=== PATIENT | female | born 1970 | race Caucasian/White ===

== ENCOUNTER 2022-01-03 10:04 | Emergency (ER) | payer BC, SELFPAY ==
--- NOTE | 2022-01-03 10:15 | ED.GENADULT ---
HPI - General Adult General Chief complaint: Upper Respiratory Infection Stated complaint: sorethroat History of Present Illness HPI narrative: Patient is a 51-year-old female who presents to the [facility] via [facility]OV for an evaluation of upper respiratory symptoms that started yesterday. Additionally, she reports a scratchy throat, left tonsillar swelling and postnasal drip. Salt water gargles provide some relief. Symptoms worsen at night. She reports taking a home COVID test which was negative. Related Data Home Medications Medication Instructions Recorded Confirmed No Home Medications 01/03/22 01/03/22 Allergies Allergy/AdvReac Type Severity Reaction Status Date / Time No Known Allergies Allergy Verified 01/03/22 10:30 Review of Systems Review of Systems: Denies history of COPD, bronchitis, asthma, and pneumonia. Denies current/past tobacco use. Pertinent negatives: fever, sweats, chills, change in appetite, fatigue, skin color changes, headache, nasal congestion, dizziness, lymphadenopathy, sinus problems, drooling, difficulty swallowing, ear pain/drainage, chest pain, heart murmurs, heart palpitations, shortness of breath, wheezing, cyanosis, hemoptysis, hoarseness, orthopnea, pleuritic pain, nausea, vomiting, diarrhea, and myalgias. PMFSH Comments I have reviewed and agree with the patient's past medical, surgical, social, and family hx as documented by the RN. There is no relevant family history pertinent to the presenting complaint. Exam Narrative: GENERAL: Well-appearing, well-nourished, and in no acute distress. HEAD: Normocephalic, atraumatic. No sinus tenderness or facial swelling appreciated. EYES: PERRLA and EOMI. No evidence of erythema, swelling, or drainage. ENT: Bilateral external ears and ear canals normal. Bilateral TMs are normal.No TM perforation. Nares clear, no rhinorrhea or epistaxis. Bilateral turbinates without erythema/ swelling. Mucous membranes moist and pink. Uvula is midline without erythema and swelling. Moderate erythema noted to posterior pharynx. No evidence of tonsillar swelling, exudate, pooling of secretions, tonsillar abscess, tenting, pooling of secretions. Breath odor and voice normal. NECK: Supple. No Lymphadenopathy or nuchal rigidity appreciated. CHEST: Bilateral lung staley are clear to auscultation. No respiratory distress. No evidence of cough or pleuritic cp upon examination. HEART: Regular rate and rhythm. No murmur, gallop, or rub heard. EXTREMITIES: Normal range of motion. No edema. SKIN: Warm, dry, no rash. NEURO: No focal deficits. Alert and oriented x3. Course Course Level of Care: Express Care Visit Medical Decision Making Differential Diagnosis Differential Diagnosis: Allergic rhinitis, ABRS, acute viral sinusitis, strep pharyngitis, nasopharyngitis, bronchitis, pneumonia, AOM, otitis externa, viral URI, influenza, covid-19 Vital Signs Vital Signs: Reviewed Lab Data Lab results narrative: Rapid strep negative Critical Care Time Critical Care Time Critical Care Time: No Discharge Plan Discharge Clinical Impression: Upper respiratory infection Patient Disposition: Home, Self-Care Condition: Stable Additional Instructions: --See discharge instructions for detailed information. --You tested negative for strep today. --If you received prescription medication today be sure to take all prescription medication only as prescribed. --You may take [id number]-ror-[id number] Tylenol/ibuprofen as needed for pain, swelling, or fever control. Take only as directed per packaging label. --If you have been prescribed prednisone, DO NOT take yewt-cov-dyfmirx anti-inflammatories such as Ibuprofen, Advil, Aleve etc. while taking this mediation. --Be sure to follow up with your primary care provider as recommended. Follow-up/Referrals: Apoorva Degroot PA-C [Primary Care Provider] - Time of Disposition: 10:44
[2022-01-03 10:19] VITALS: BP 139/90; PULSE 79; RESP 18; TEMP 36.8; O2SAT 100
== END 2022-01-03 10:45 | disposition home or self-care (01) ==
PROVIDERS: Emergency Provider Nurse Practitioner Family; PCP Physician Assistant Medical
DX: J06.9 Acute upper respiratory infection, unspecified (principal)
CPT/HCPCS: 87081; 87880; 99203; G0463

== ENCOUNTER 2025-04-20 16:05 | Outpatient (CLI) | payer OTHER, SELFPAY ==
--- NOTE | ~2025-04-20 | MR_ITS ---
EXAMINATION: MR knee RT wo con DATE: 04/20/2025 16:44 INDICATION: 54-year-old female with right knee pain. No mention of trauma. TECHNIQUE: Magnetic resonance imaging (MRI) of the right knee knee was performed without intravenous contrast. Sequences included axial PD-weighted FS FSE, coronal PD-weighted FSE and PD-weighted FS FSE, sagittal PD-weighted FSE, and sagittal T2-weighted FS FSE. COMPARISON: Radiograph dated 10/20/2023. FINDINGS: No acute bony lesions at the right knee. Lateral meniscus and lateral articular cartilage are normal. The anterior and posterior cruciate ligaments are intact. Severe, grade 3 to grade 4 degenerative changes of medial articular cartilage with minimal subchondral bone marrow edema and near complete loss of cartilage lining over the medial aspect of the medial compartment. Significant irregular chronic complex tear of the posterior horn of the medial meniscus extending to the mid medial meniscus with a large portion of mid medial meniscus is absent. Cystic degeneration of the periphery of the mid medial meniscus with severe medial extrusion of mid medial meniscus. Collateral ligaments are intact. Quadriceps and patellar tendon are intact. Patellofemoral articular cartilage are normal. Small effusion in the knee joint. 2 x 1 cm Joe's cyst in the popliteal fossa. IMPRESSION: 1. No acute bony lesions at the right knee. 2.Significant irregular chronic complex tear of the posterior horn of the medial meniscus extending to the mid medial meniscus with a large portion of mid medial meniscus is absent. Cystic degeneration of the periphery of the mid medial meniscus with severe medial extrusion of mid medial meniscus. 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 4. Small effusion in the knee joint. Small Joe's cyst in the popliteal fossa. Reviewed, dictated and finalized at location [facility] IMPRESSION: 1. No acute bony lesions at the right knee. 2.Significant irregular chronic complex tear of the posterior horn of the media l meniscus extending to the mid medial meniscus with a large portion of mid med ial meniscus is absent. Cystic degeneration of the periphery of the mid medial meniscus with severe medial extrusion of mid medial meniscus. 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 4. Small effusion in the knee joint. Small Joe's cyst in the popliteal fossa.
--- OUTSIDE RECORDS SUMMARY | 2025-04-20 16:11 | XMS_ITS | Clinical Summary ---
Author Organization [facility] [address] [facility] Address [address] [place] [address] Care Team Providers Care Advertising Strategist Name Role Phone Unavailable Primary Care Provider Unavailabl e Social History Tobacco Use Types Packs/Day Years Used Date Smoking Tobacco: Never Assessed Comments Unknown Sex and Gender Information Value Date Recorded Sex Assigned at Not on file Legal Sex Female 3:35 PM CDT Gender Identity Not on file Sexual Orientation Not on file Plan of Treatment Upcoming Encounters Date Type Department Care Team ([facility] st Contact Info) Description 07/09/2025 10:30 AM CDT Office Visit [facility] Oncology and Hematology - [place] [address] [facility] [address] [place] [address] Jesus Manuel Ga MD [address] [facility] [address] [place] [address] Health Maintenance Due Date Last Done Comments DTAP/TDAP/TD VACCINES (1 - Tdap) 1988 HEPATITIS B VACCINES (1 of 3 - 19+ 3-dose series) 06/04 HPV/Cotest (21-29) 1990 CERVICAL CANCER SCREENING 1999 HPV/Cotest (30-65) 1999 PAP SMEAR 1999 BREAST CANCER SCREENING 2009 COLORECTAL SCREENING 2014 Colorectal Cancer Screening 2014 FIT-DNA Q 3 years 2014 FIT/FOBT Q 1 year 2014 Flex Sig/CT Colonography Q 5 years 2014 ZOSTER VACCINE (1 of 2) 2019 INFLUENZA VACCINE (#1) 2024
--- OUTSIDE RECORDS SUMMARY | 2025-04-20 16:11 | XMS_ITS | Clinical Summary ---
Author Organization [facility] Address [address] [place] [address] Care Team Providers Care Biochemical Development Engineer Name Role Phone Apoorva Degroot PA-C Primary Care Provider [phone] Allergies No known active allergies Medications Ascorbic Acid (SIRENA-C OR) Take 1,000 mg by mouth daily. Active Zinc 50 MG Tab Take by mouth Active Cyanocobalamin 100 MCG Tab Take 2,000 mcg by mouth daily. Active Cholecalciferol 10 MCG (400 UNIT) Cap 2,000 Units. Active methylPREDNISol one, DEBBI, (MEDROL DOSEPAK) 4 MG tabletIndicatio ns:Right ankle swelling 6 TABLETS ON DAY ONE, 5 TABLETS DAY TWO, 4 TABLETS DAY THREE, 3 TABLETS DAY FOUR, 2 TABLETS DAY FIVE, AND 1 TABLET DAY SIX 1 each 10/27/2022 Active Active Problems No known active problems Immunizations Immunization Administration Dates Next Due Influenza Adult (Generic) 03/19/2018,02/27/2016 MODERNA COVID-19 (12+) MRNA, LNP-S, PF, 100 MCG/ 0.5 ML DOSE 08/23/2020,07/26/2020 MODERNA COVID-19 (HOSPICE OFFICE COORDINATOR SAMSON LAINEY), MRNA, LNP-S, PF, 50 MCG/ 0.25 ML DOSE 04/28/2021 Family History Medical History Relation Comments Cancer Mother Diabetes Mother Cancer Paternal Uncle Cancer Sister Relation Status Comments Mother Paternal Uncle Sister Social History Tobacco Use Types Packs/Day Years Used Date Smoking Tobacco: Never Passive Smoke Exposure: Never Smokeless Tobacco: Never Tobacco Cessation:Counseling Given: Not Answered Alcohol Use Standard Drinks/Week Comments Not Currently 0 (1 standard drink = 0.6 oz pur e alcohol) PHQ-2 Answer Date Recorded Patient Health Questionnaire-2 Score 0 10/27/2022 Comments No Sex and Gender Information Value Date Recorded Sex Assigned at Not on file Legal Sex Female 7:29 PM CDT Gender Identity Not on file Sexual Orientation Not on file Last Filed Vital Signs Vital Sign Reading Time Taken Comments Blood Pressure 164/96 10/27/2022 10:01 AM CDT Pulse 76 10/27/2022 9:57 AM CDT Temperature 36.9 C (98.4 F) 10/27/2022 9:57 AM CDT Respiratory Rate 20 10/27/2022 9:57 AM CDT Oxygen Saturation 99% 10/27/2022 9:57 AM CDT Inhaled Oxygen Concentration - - Weight 113.4 kg (250 lb) 10/27/2022 9:57 AM CDT Height 165.1 cm (5' 5) 10/27/2022 9:57 AM CDT Body Mass Index 41.6 10/27/2022 9:57 AM CDT Plan of Treatment Health Maintenance Due Date Last Done Comments Cervical Cancer Screening Pa p Smear (Age 30 to 64) Every 3 Years 1969 Colorectal Cancer Screening Colonoscopy (10 Years) 1969 Annual Physical 1972 Hepatitis C 1987 DTaP, Tdap and Td Vaccines ( 1 - Tdap) 1988 Hepatitis B Vaccines (1 of 3 - 19+ 3-dose series) 1988 Cervical Cancer Screening Pa p with HPV Testing (Age 30 to 64) Every 5 Years 1999 Cervical Cancer Screening wi th HPV 1999 Mammogram Screening 2009 Pneumococcal Vaccine: 50+ Years (1 of 1 - PCV) 2019 Zoster Vaccines (1 of 2) 2019 COVID-19 Vaccine (4 - 2024-2 6 season) 2025 04/28/2021, 08/23/2020, 07/26/2020 Influenza Adult (#1) 2025 03/19/2018, 02/27/2016 Hepatitis A Vaccines Aged Out No long er eligible based on patient's age to complete this topic Meningococcal B Vaccine Aged Out No l onger eligible based on patient's age to complete this topic Meningococcal Vaccine Aged Out No melissa benson eligible based on patient's age to complete this topic RSV Immunizations Under 20 Months Aged Out No longer eligible b ased on patient's age to complete this topic Insurance Care Teams Biochemical Development Engineer Relationship Specialty Start Date End Date Apoorva Degroot PA-C [address] [place], [place] [id number] [place] [address] PCP - General PHYSICIAN DIRECTOR [employer] 10/27/22
--- OUTSIDE RECORDS SUMMARY | 2025-04-20 16:11 | XMS_ITS | Clinical Summary ---
Author Organization [facility] at [facility] Office Center Address [address] [place] [address] Care Team Providers Care Posting Machine Operator Name Role Phone Apoorva Degroot Primary Care Provider [phone] Maulik Tate MD Unavailable [phone] Berta Sinclair NP Unavailable [phone] Allergies No known active allergies Medications cyanocobalamin (Vitamin B-12) 100 mcg tablet Take 20 tablets (2,000 mcg total) by mouth daily Active cholecalciferol (VITAMIN D-3) 400 unit capsule 5 tablet/capsu le (2,000 Units total) Active ascorbic acid (VITAMIN C) 1,000 mg tablet Take 1 tablet (1,000 mg total) by mouth daily Active zinc 50 mg tablet Take by mouth Active estradioL (ESTRACE) 0.01 % (0.1 mg/gram) vaginal cream Apply nightly to vagina for 1 week, then Wednesday// Wednesday 42.5 g 1 08/11/2023 Active Active Problems Problem Noted Date Diagnosed Date History of colonic polyps 02/19/2025 Rectal adenoma 07/28/2022 Encounter for screening colonoscopy 12/23/2021 Overview (12/23/2021): Added automatically from request for surgery [id number] Epistaxis 12/09/2021 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 Deviated nasal septum 12/09/2021 Encounters Date Type Department Care Team Description 03/16/2025 Results Follow-Up [facility] Surgeon [address] [place] [address] Maulik Tate MD Surgical pathology 03/14/2025 3:13 PM YOUTH ADVOCATE Anesthesia Event [facility] Endoscopy [address] [place] [address] Americo Lebron MD Talbert, Jessica Jean, TEST PULLER 03/14/2025 2:30 PM YOUTH ADVOCATE - 03/14/2025 3:15 PM YOUTH ADVOCATE Surgery [facility] Endoscopy [address] [place] [address] Maulik Tate MD COLON REMOVAL SNARE 03/14/2025 1:13 PM YOUTH ADVOCATE - 03/14/2025 5:08 PM YOUTH ADVOCATE Hospital Encounter [facility] Endoscopy [address] [place] [address] Maulik Tate MD History of colonic polyps Discharge Disposition: Discharge to home or self care 03/07[facility] Floor 5 [place] [phone] Chandni Perez, JOANA Surgery Confirmation (03/14/25 COLONOSCOPY ) 03/07/2025 Telephone [facility] Medicine Surgery [address] [facility] 2nd Floor [address] [place] [address] Cira Pineda, SULAIMAN Colonoscopy 02/16/2025 [facility] [address] [facility] Floor 5 [place] [phone] Cynthia Black B.A. Colonoscopy checklist 02/16/2025 [facility] [address] [facility] Floor 5 [place] [phone] Cynthia Black BJanine Colonoscopy 02/12/2025 Telephone [facility] Medicine Surgery [address] [place] [address] Floor 5 [place] [phone] Cynthia Black BImaniAImani Colonoscopy 01/29/2025 Results Follow-Up [facility] Obstetrical Gynecology [address] [facility] [address] [place] [address] Amado Moran MD Screening Mammogram Bilateral W Angus 01/27/2025 8:34 AM CDT - 01/27/2025 11:59 PM CDT Hospital Encounter [facility] Breast Imaging [address] [place] [phone] Screening mammogram, encounter for Discharge Disposition: Discharge to home or self care from Last 3 Months Surgical History Surgery Date Site/Laterality Comments CHOLECYSTECTOMY BREAST BIOPSY 1990s Right Medical History Medical History Date Comments Family history of breast cancer in first degree relative Fibrosis, breast Nosebleed Family History Medical History Relation Name Comments Colon polyps Father Colon cancer Father's Brother Breast cancer Mother Diabetes Mother BRCA1 Negative Sister BRCA2 Negative Sister Breast cancer Sister Relation Name Status Comments Father Father's Brother Mother Sister Social History Tobacco Use Types Packs/Day Years Used Date Smoking Tobacco: Never Smokeless Tobacco: Never Tobacco Cessation:Counseling Given: Not Answered Alcohol Use Standard Drinks/Week Comments Yes 0 (1 standard drink = 0.6 oz pur e alcohol) AUDIT-C Answer Date Recorded Q1: How often do you have a drink containing alc ohol? Monthly or less 03/14/2025 Q2: How many drinks containi ng alcohol do you have on a typical day when you are drinking? 1 or 2 03/14/2025 Q3: How often do you have si x or more drinks on one occasion? Never 03/14/2025 Personal Safety Answer Date Recorded Have you ever been in or are you currently in a harmful physical or emotional relationship or is someone making you feel afraid or unsafe? Denies 03/14/2025 Comments No Sex and Gender Information Value Date Recorded Sex Assigned at Not on file Legal Sex Female 1:45 AM YOUTH ADVOCATE Gender Identity Not on file Sexual Orientation Not on file Obstetrics History Para Term AB IAB SAB Ectopic Multiple Livin g Live Births 2 2 2 Date Outcome GA Total Labor Labor/2nd/3rd Weight Sex Type Anes PTL Shannon A1 A5 Name Clin Term Term Comments First delivery: 27 yo Menarche: 12 Last Filed Vital Signs Vital Sign Reading Time Taken Comments Blood Pressure 148/87 03/14/2025 4:40 PM YOUTH ADVOCATE Pulse 68 03/14/2025 4:40 PM YOUTH ADVOCATE Temperature 36.4 C (97.5 F) 03/14/2025 4:15 PM YOUTH ADVOCATE Respiratory Rate 16 03/14/2025 4:40 PM YOUTH ADVOCATE Oxygen Saturation 99% 03/14/2025 4:40 PM YOUTH ADVOCATE Inhaled Oxygen Concentration - - Weight 115.2 kg (254 lb) 03/14/2025 1:24 PM YOUTH ADVOCATE Height 172.7 cm (5' 8) 03/14/2025 1:24 PM YOUTH ADVOCATE Body Mass Index 38.62 03/14/2025 1:24 PM YOUTH ADVOCATE Plan of Treatment Health Maintenance Due Date Last Done Comments Depression Screening 1970 Hepatitis C Screening 1970 DTaP/Tdap/Td Vaccine (1 - Tdap) 1980 Hepatitis B Screening 1987 Zoster Vaccine (1 of 2) 2019 Cervical Cancer Screening 12/26/20242023, 12/27/2023, 08/02/2023, Additional history exists Covid-19 Vaccine ( season) 2025 04/28/2021, 08/23/2020, 07/26/2020 Influenza Vaccine (#1) 2025 03/19/2018, 2015 Regular Well Visit/Exam 18-64 01/08/2026 01/08/2025, 06/21/2023, 03/13/2022, Additional history exists Breast Cancer Screening-Mammogram 01/27/2026 01/27/2025, 11/22/2023, 10/28/2022, Additional history exists Colon Cancer Screening-Colonoscopy 03/14/2035 03/14/2025, 12/31/2021 Colon Cancer Screening-CT Colonography Discontinued 03/14/2025, 12/31/2021 Colon Cancer Screening-DNA Stool Discontinued 03/14/2025, 12/31/2021 Colon Cancer Screening-FIT Discontinued 03/14/2025, Colon Cancer Screening-Sigmoidoscopy Discontinued 03/14/2025, 12/31/2021 Pneumococcal vaccine <65 Aged Out No longer eligible based on patient's age to complete this topic Procedures Procedure Name Priority Date/Time Associated Diagnosis Comments SURGICAL PATHOLOGY Routine 03/14/2025 3: 42 PM YOUTH ADVOCATE History of colonic polyps ENDO ADD ON COLON BIOPSY 03/14/2025 3:13 PM YOUTH ADVOCATE History of colonic polyps COLON REMOVAL SNARE 03/14/2025 3 :13 PM YOUTH ADVOCATE History of colonic polyps COLONOSCOPY 03/14/2025 2:57 PM YOUTH ADVOCATE SCREENING MAMMOGRAM BILATERAL W ANGUS Schedule Routine, Read Routine (OP Routine) 01/27/2025 9:01 AM CDT Screening mammogram, encounter for HIGH RISK HPV DNA DETECTION WITH GENOTYPING Routine 12/27/2023 6:22 PM CDT Screening for cervical cancer Unsatisfactory cytologic smear of cervix from Last 3 Months or Most Recently Relevant to Health Maintenance Results * Surgical pathology (03/14/2025 3:42 PM YOUTH ADVOCATE) Tissue (Polyp(s), colon/colorectal, esophageal, gastric) 03/14/2025 3:42 PM YOUTH ADVOCATE Comment:2 forceps Tissue specimen (specimen) (Polyp(s), colon/colorectal, esophageal, gastric) 03/14/2025 3:48 PM YOUTH ADVOCATE Comment:1 forceps Tissue specimen (specimen) (Polyp(s), colon/colorectal, esophageal, gastric) 03/14/2025 3:55 PM YOUTH ADVOCATE Comment:1 hot snare Narrative PATHOLOGY [facility] - 03/16/2025 12:49 PM YOUTH ADVOCATE EPIC results best viewed via link to PDF [facility] [place] [address] Note to Patients: This report may contain a detailed description of human tissue sent by a health care provider to the laboratory for pathologic evaluation. The content of this report is essential for diagnosis and may provide important critical findings. This information may be unfamiliar to patients to review without a medical professional present. It is advised that the patient review this report in the presence of a health care provider who can answer questions and explain the details. SURGICAL PATHOLOGY REPORT FINAL Patient Name: BERNICE MORRIS Gender: F : 1970 (Age: 54) Address: [address] [place] [address] Hospital #: [id number] Taken:03/14/2025 Received:03/14/2025 Reported: 03/16/2025 Patient Type: [facility] EP SAME Client [facility] Service: Surgery Location: Physician(s): [place] Diagnosis: A. Large bowel, ascending colon, polyps x2, biopsy - Colonic mucosa with no histopathologic abnormality - No polyps identified B. Large bowel, splenic flexure, polyp, biopsy - Colonic mucosa with no histopathologic abnormality - No polyp identified C. Large bowel, rectum, polyp, biopsy - Tubulovillous adenoma frfa/03/16/2025 11:59 By this signature, I attest that the above diagnosis is based upon my personal examination of the slides(and/or other material indicated in the diagnosis). Tan Bryan M.D. Report Electronically Reviewed and Signed Out By Tan Bryan M.D. 03/16/2025 12:49:39 Kyara Kumar M.D. History: The patient is a 54-year-old woman presenting with a history of colonic polyps. Operative procedure: Colon removal snare with biopsy. Specimen(s) Received: A: Ascending colon polyps B: Splenic flexure polyp C: Rectal polyp Gross Description: Received in three formalin jars labeled with the patient's identifiers. A. Labeled ascending colon polyps and consists of multiple good fragment(s) of soft tissue measuring 0.5 x 0.3 x 0.2 cm in aggregate. Labeled A1. Jar 0. B. Labeled splenic flexure polyp and consists of a single good fragment(s) of soft tissue measuring 0.5 cm in greatest dimension. Labeled B1. Jar 0. C. Labeled rectal polyp and consists of multiple good and brown fragment(s) of soft tissue measuring 2.7 x 1.6 x 0.3 cm in aggregate. Filtered. Labeled C1 to C2. Jar 0. sxst/03/15/2025 11:41 PA(s): Annalise Thomas By this signature, I attest that the above diagnosis is based upon my personal examination of the slides(and/or other material). Addenda/Procedures Microscopic slide review and interpretation for this case was performed at [facility], Department of Surgical Pathology, [address] [facility] [address], [id number], [place] [address] CLIA # [id number] The performance characteristics of some immunohistochemical stains, fluorescence in-situ hybridization tests and immunophenotyping by flow cytometry cited in this report (if any) were determined by the Surgical Pathology and Flow Cytometry Departments at [facility] as part of an ongoing senior quality control inspector program and in compliance with federally mandated regulations drawn from the Clinical Laboratory Improvement Act of 1988 (CLIA '88). Some of these tests rely on the use of analyte specific reagents and are subject to specific labeling requirements by the US Food and Drug Administration. Such diagnostic tests may only be performed in a facility that is certified by the Department of Health and Human Services as a high complexity laboratory under CLIA '88. The FDA has determined that such clearance or approval is not necessary. This test is used for clinical purposes. It should not be regarded as investigational or for research. Nevertheless, federal rules concerning the medical use of analyte specific reagents require that the following disclaimer be attached to the report: This test was developed and its performance characteristics determined by the Surgical Pathology and Flow Cytometry Departments of [facility]. It has not been cleared or approved by the U. S. Food and Drug Administration. IMAGES AND SCANNED DOCUMENTS, IF INCLUDED, ONLY VIEWABLE IN PDF VERSION OF REPORT Maulik Tate MD LAB PATHOLOGY ORDERABLES Fin al Result PATHOLOGY [facility] [phone] * Colonoscopy (03/14/2025 2:57 PM YOUTH ADVOCATE) Anatomical Region Laterality Modality Other Narrative Procedure Note Maulik Tate MD - 03/14/2025 2:57 PM CST ENDOSCOPY LAB Patient Name: Bernice Morris Procedure Date: 03/14/2025 2:57 PM Date of : 1970 Admit Type: Outpatient Age: 54 Gender: Female Attending MD: Maulik Tate M.D., Room: [facility] ENDOSCOPY ROOM 02 Note Status: Finalized Procedure: Colonoscopy Indications: High risk colon cancer surveillance: Personalhistory of adenomatous colonic polyps, Last colonoscopy: December 2021 Providers: Maulik Tate M.D. Referring MD: Apoorva Degroot PA-C Medicines: Monitored Anesthesia Care Complications: No immediate complications. Estimated Blood Loss: Estimated blood loss was minimal. Procedure: Pre-Anesthesia Assessment: - Immediately prior to administration ofmedications, the patient was re-assessed for adequacy to receive sedatives. - Sedation was administered by an anesthesia professional. The sedation level attained wasmoderate. - The heart rate, respiratory rate, oxygen saturations, blood pressure, adequacy of pulmonary ventilation, and response to care were monitored throughout the procedure. - The physical status of the patient wasre-assessed after the procedure. The benefits, risks and alternatives of theprocedure and sedation were discussed and informed consentwas obtained. All questions were answered. Please referto the signed informed consent document in the medical record. The scope was passed under direct vision.The [id number] was introduced through the anusand advanced to the terminal ileum, with identificationof the appendiceal orifice and IC valve. Thecolonoscopy was somewhat difficult due to significant looping. Successful completion of the procedure was aided by straightening and shortening the scope to obtainbowel loop reduction and applying abdominal pressure with Colowrap. The patient tolerated the procedure well. The quality of the bowel preparation was excellent. The quality of the bowel preparation was evaluated using the BBPS ([place] Bowel Preparation Scale)with scores of: Right Colon = 3, Transverse Colon = 3and Left Colon = 3 (entire mucosa seen well with no residual staining, small fragments of stool oropaque liquid). The total BBPS score equals 9. Theterminal ileum, ileocecal valve, appendiceal orifice, and rectum were photographed. Bowel prep wasadministered using a split dose. AI Technology was utilizedduring the procedure to aid in polyp detection. Findings: The perianal examination was normal. The digital rectal exam findings include soft polypoid mass.Pertinent negatives include normal sphincter tone. The sigmoid colon revealed moderately excessive looping. The terminal ileum appeared normal. Two sessile polyps were found in the ascending colon. The polyps were1 to 2 mm in size. These polyps were removed with a jumbo cold forceps. Resection and retrieval were complete. A 3 mm polyp was found in the splenic flexure. The polyp was sessile. The polyp was removed with a jumbo cold forceps. Resection andretrieval were complete. Multiple diverticula were found in the sigmoid colon. A 20 mm polyp was found in the distal rectum. The polyp was semi-sessile. The polyp was removed with a piecemeal technique usinga hot biopsy forceps. Resection and retrieval were complete.Fulguration to ablate the remaining base of the lesion by snare was successful. The exam was otherwise without abnormality on direct and retroflexion views. Impression: - Soft polypoid mass found on digital rectalexam. - There was significant looping of the colon. - The examined portion of the ileum was normal. - Two 1 to 2 mm polyps in the ascending colon,removed with a jumbo cold forceps. Resected andretrieved. - One 3 mm polyp at the splenic flexure, removedwith a jumbo cold forceps. Resected and retrieved. - Diverticulosis in the sigmoid colon. - One 20 mm polyp in the distal rectum, removed piecemeal using a hot biopsy forceps. Resected and retrieved. Treated with a hot snare. - The examination was otherwise normal on directand retroflexion views. Recommendation: - Discharge patient to home. - Advance diet as tolerated and high fiber diet indefinitely. - Continue present medications. - Use fiber, for example Citrucel, Fibercon, Konsylor Metamucil. - Await pathology results. - Repeat colonoscopy date to be determined after pending pathology results are reviewed for surveillance based on pathology results. - For polyp and cancer prevention: Consider daily aspirin if OK with primary care provider,especially if you are under age 7070 years old; Take daily recommendation/allowance for calcium, folate, and vitamin D; Keep a healthy diet low in processed and red meats, exercise regularly, maintain healthy weight. See [facility] website for moreprevention tips. - Contact Information: During normal business hours (8AM-4PM) - Pleasecall the Nurse Coordinator: [phone]. teacher physically impaired physician after hours, weekends andholidays: [phone] and asked for the [place]-Rectalphysician youth corrections officer. - A polyp or polyps were removed during your colonoscopy today. After the pathology result ofthe polyp(s) is reviewed, the doctor who performedyour colonoscopy will recommend follow-up colonoscopy to you based on current guidelines by gastroenterology societies: - If 1-2 adenomas < 10mm, recommend repeatcolonoscopy in 7-10 years - If 3-4 adenomas < 10mm, recommend repeatcolonoscopy in 3-5 years - If 5-10 adenomas < 10mm, recommend repeat colonoscopy in 3 years - If an adenoma > 10mm, recommend repeatcolonoscopy in 3 years - If an adenoma has tubulovillous or villoushistology or high-grade dysplasia, recommend repeatcolonoscopy in 3 years - If > 10 adenomas, recommend repeat colonoscopy in1 year Attending Participation: I was present and/or immediately available for the entire case, and I performed the torres portions of the procedure. Electronically signed by Maulik Tate MD Maulik Tate M.D. 03/14/2025 4:17:52 PM Number of Addenda: 0 Note Initiated On: 03/14/2025 2:57 PM us Maulik Tate MD ENDOSCOPY PROCEDURES Final R esult * Screening Mammogram Bilateral W Angus (01/27/2025 9:01 AM CDT) Anatomical Region Laterality Modality Breast Bilateral Mammography Impressions 01/29/2025 6:56 AM CDT Bilateral No evidence of malignancy in either breast. OVERALL BI-RADS FINAL ASSESSMENT: 1 - Negative RECOMMENDATION: Recommend bilateral annual screening mammography. Narrative 01/29/2025 6:56 AM CDT EXAMINATION: Screening Mammogram Bilateral W Angus: 01/27/2025 COMPARISON: Relevant prior studies available at the time of interpretation were reviewed, including the most recent mammogram on: 11/22/2023. TECHNIQUE: Mammography was performed with 2D and 3D digital breast tomosynthesis (DBT) images. CAD was utilized. BREAST PARENCHYMAL COMPOSITION: The breasts are almost entirely fatty. FINDINGS: Bilateral There is no suspicious mass, calcification, or architectural distortion in either breast. us Self Screening Mammogram IMG MAMMO PROCEDURES Fi nal Result * High Risk HPV DNA Detection with Genotyping (Molecular component) (12/27/2023 6:22 PM CDT) HPV HR 16 Not Detected Not Detected [facility] Comment:Testing performed by : [facility], [address] [place]., [address] HPV HR 18 Not Detected Not Detected [facility] Comment:Testing performed by : [facility], [address] [place]., [address] HPV HR Non 16/18 Not Detected Not Detected [facility] Comment: Interpretive Data Nucleic acid amplification for detection of high-risk Human Papilloma virus (HPV) is performed by the Linh Alexia 6800 HPV test. This assay specifically detects HPV-16 and HPV-18 genotypes. The following HPV genotypes are detected as high-risk HPV: HPV-31, 33, 35, ,39, 45, 51, 52, 56, 58, 59, 66, and 68. This assay has been approved by the [place] Food and Drug Administration for detection of HPV in cervical specimens collected by a physician using an endocervical brush/spatula or cervical broom and placed in the ThinPrep Pap Test PreservCyt collection containers. The performance characteristics of this test have been verified by the [facility] Molecular Infectious Disease laboratory. Correlate with separately reported cytology results, as applicable. Interpretive data last revised 22 Testing performed by: [facility], [address] [place]., [address] Endocervical 12/27/2023 6:22 PM CDT 12/28/2023 12:34 PM CDT Narrative [facility] - 12/29/2023 2:05 AM CDT Clinical history and diagnosis->08/02/23 unsatisfactory Testing type->Screening Last menstrual period (date if known)->pm Amado Moran MD LAB BODY FLUIDS AND STO OLS ORDERABLES Final Result [facility] [address] [facility] [place] [address] [facility] from Last 3 Months or Most Recently Relevant to Health Maintenance Insurance [facility] CHOICE PLUS [facility] CHOICE PLUS Advance Directives For more information, please contact: [phone] * Full Code (Latest Code Status on File) Date Activated Date Inactivated Comments 03/14/2025 1:42 PM 03/14/2025 9:13 PM * Full Code Date Activated Date Inactivated Comments 12/31/2021 12:12 PM 12/31/2021 6:53 PM Care Teams Posting Machine Operator Relationship Specialty Start Date End Date Apoorva Degroot PA [address] [place] [id number] PCP - General Family Practice 12/26/21 Maulik Tate MD [address] [place] [id number] Consulting Physician Colon and Rectal Surgery 01/01/22 Berta Sinclair NP [address] [place] [address] Nurse Practitioner Nurse Practitioner 03/20/25
--- OUTSIDE RECORDS SUMMARY | 2025-04-20 16:11 | XMS_ITS | Encounter Summary ---
Author Organization [facility] Healthcare Address [address] [place] [address] Care Team Providers Care Flight/Transport Nurse Name Role Phone Apoorva Degroot Primary Care Provider Maulik Tate MD Unavailable [phone] Berta Sinclair NP Unavailable [phone] Encounter Details Date Type Department Care Team (Late st Contact Info) Description 03/16/2025 Results Follow-Up [facility] Surgeon [address] [place] [address] Maulik Tate MD [address] [facility] [phone] [place] [address] Surgical pathology Social History Tobacco Use Types Packs/Day Years Used Date Smoking Tobacco: Never Smokeless Tobacco: Never Alcohol Use Standard Drinks/Week Comments Yes 0 [...] on file Legal Sex Female 1:45 AM CO OP Gender Identity Not on file Sexual Orientation Not on file documented as of this encounter Miscellaneous Notes * Result Encounter Note - Maulik Tate MD - 03/16/2025 5:48 PM CO OP Spoke to her about biopsy results and questions answered, she is doing well. Please set her up for sigmoidoscopy in the GI lab in 6 months for polyp follow up, thanks. Please send scope and path reports to her PCP and Dr. Sinclair in the same [facility], thanks! OP documented in this encounter Plan of Treatment Not on file documented as of this encounter Visit Diagnoses Not on filedocumented in this encounter Care Teams Flight/Transport Nurse Relationship Specialty Start Date End Date Apoorva Degroot PA [address] [place] [address] PCP - General Family Practice 12/26/21 Maulik Tate MD [address] [place] [address] Consulting Physician Colon and Rectal Surgery 01/01/22 Berta Sinclair NP [address] [place] [address] Nurse Practitioner Nurse Practitioner 03/20/25 documented as of this encounter
== END 2025-04-20 16:06 | disposition home or self-care (01) ==
PROVIDERS: PCP Nurse Practitioner Family; Visit Provider Nurse Practitioner Family
DX: M25.461 Effusion, right knee (principal); M17.11 Unilateral primary osteoarthritis, right knee
CPT/HCPCS: 73721

== ENCOUNTER 2025-04-30 08:00 | Outpatient (CLI) | payer OTHER, SELFPAY ==
--- OUTSIDE RECORDS SUMMARY | 2025-04-30 08:08 | XMS_ITS | Clinical Summary ---
Author Organization 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 Deviated nasal septum 12/09/2021 Encounters Date Type Department Care Team Description 03/16/2025 Results Follow-Up [facility] Surgeon [address] [place] [address] Maulik Tate MD Surgical pathology 03/14/2025 3:13 PM ASTRONAUTICAL ENGINEER Anesthesia Event [facility] Endoscopy [address] [place] [address] Americo Lebron MD Talbert, Jessica Jean, CRTS 03/14/2025 2:30 PM ASTRONAUTICAL ENGINEER - 03/14/2025 3:15 PM ASTRONAUTICAL ENGINEER Surgery [facility]oscopy [address] [place] [address] Maulik Tate MD COLON REMOVAL SNARE 03/14/2025 1:13 PM ASTRONAUTICAL ENGINEER - 03/14/2025 5:08 PM ASTRONAUTICAL ENGINEER Hospital Encounter [facility] Endoscopy [address] [place] [address] Maulik Tate MD History of colonic polyps Discharge Disposition: Discharge to home or self care 03/07[facility] [facility] Floor [address] [place] [id number] Chandni Perez, JOANA Surgery Confirmation (03/14/25 COLONOSCOPY ) 03/07/[address] [facility] Medicine Surgery [address] [facility] 2nd Floor [address] [place] [address] Cira Pineda, SULAIMAN Colonoscopy 02/16/2025 [facility] [address] [facility] Floor [address] [place] [id number] Cynthia Black B.A. Colonoscopy checklist 02/16/2025 [facility] [address] [facility] Floor [address] [place] [id number] Cynthia Black BJanine Colonoscopy 02/12/[address] [facility] Medicine Surgery [address] [place] [address] Floor [address] [place] [id number] Cynthia Black BImaniAImani Colonoscopy 01/29/2025 Results Follow-Up [facility] Obstetrical Gynecology [address] [facility] [address] [place] [address] Amado Moran MD Screening Mammogram Bilateral W Angus from Last 3 Months Surgical History Surgery [...] on file Legal Sex Female 1:45 AM ASTRONAUTICAL ENGINEER Gender Identity Not on file Sexual Orientation [...] Comments Blood Pressure 148/87 03/14/2025 4:40 PM ASTRONAUTICAL ENGINEER Pulse 68 03/14/2025 4:40 PM ASTRONAUTICAL ENGINEER Temperature 36.4 C (97.5 F) 03/14/2025 4:15 PM ASTRONAUTICAL ENGINEER Respiratory Rate 16 03/14/2025 4:40 PM ASTRONAUTICAL ENGINEER Oxygen Saturation 99% 03/14/2025 4:40 PM ASTRONAUTICAL ENGINEER Inhaled Oxygen Concentration - - Weight 115.2 kg (254 lb) 03/14/2025 1:24 PM ASTRONAUTICAL ENGINEER Height 172.7 cm (5' 8) 03/14/2025 1:24 PM ASTRONAUTICAL ENGINEER Body Mass Index 38.62 03/14/2025 1:24 PM ASTRONAUTICAL ENGINEER Plan of Treatment Health Maintenance Due Date [...] SURGICAL PATHOLOGY Routine 03/14/2025 3: 42 PM ASTRONAUTICAL ENGINEER History of colonic polyps ENDO ADD ON COLON BIOPSY 03/14/2025 3:13 PM ASTRONAUTICAL ENGINEER History of colonic polyps COLON REMOVAL SNARE 03/14/2025 3 :13 PM ASTRONAUTICAL ENGINEER History of colonic polyps COLONOSCOPY 03/14/2025 2:57 PM ASTRONAUTICAL ENGINEER SCREENING MAMMOGRAM BILATERAL W ANGUS Schedule Routine, Read Routine (OP Routine) 01/27/2025 9:01 AM CDT Screening mammogram, encounter for HIGH RISK HPV DNA DETECTION WITH GENOTYPING Routine 12/27/2023 6:22 PM CDT Screening for cervical cancer Unsatisfactory cytologic smear of cervix from Last 3 Months or Most Recently Relevant to Health Maintenance Results * Surgical pathology (03/14/2025 3:42 PM ASTRONAUTICAL ENGINEER) Tissue (Polyp(s), colon/colorectal, esophageal, gastric) 03/14/2025 3:42 PM ASTRONAUTICAL ENGINEER Comment:2 forceps Tissue specimen (specimen) (Polyp(s), colon/colorectal, esophageal, gastric) 03/14/2025 3:48 PM ASTRONAUTICAL ENGINEER Comment:1 forceps Tissue specimen (specimen) (Polyp(s), colon/colorectal, esophageal, gastric) 03/14/2025 3:55 PM ASTRONAUTICAL ENGINEER Comment:1 hot snare Narrative PATHOLOGY [facility] - 03/16/2025 12:49 PM ASTRONAUTICAL ENGINEER EPIC results best viewed via link to PDF [facility] [place] [address] Note to Patients: This report may contain [...] Gender: F : 1970 (Age: 54) Address: [address] [place], [place] [id number] Hospital #: [id number] Taken:03/14/2025 Received:03/14/2025 Reported: 03/16/2025 Patient Type: BWC EP SAME Client [facility] Service: Surgery Location: Physician(s): [place] Robin Diagnosis: [...] interpretation for this case was performed at [facility], Department of Surgical Pathology, [address] [facility], [place] [id number], [place] [address] CLIA # [id number] The performance characteristics of some immunohistochemical stains, fluorescence in-situ hybridization tests and immunophenotyping by flow cytometry cited in this report (if any) were determined by the Surgical Pathology and Flow Cytometry Departments at [facility] as part of an ongoing supplier quality program and in compliance with federally mandated [...] Surgical Pathology and Flow Cytometry Departments of [facility]. It has not been cleared or approved by the U. S. Food and Drug Administration. IMAGES AND SCANNED DOCUMENTS, IF INCLUDED, ONLY VIEWABLE IN PDF VERSION OF REPORT us Maulik Tate MD LAB PATHOLOGY ORDERABLES Fin al Result PATHOLOG[facility] [phone] * Colonoscopy (03/14/2025 2:57 PM ASTRONAUTICAL ENGINEER) Anatomical Region Laterality Modality Other Narrative Procedure Note Maulik Tate MD - 03/14/2025 2:57 PM CST ENDOSCOPY LAB Patient Name: Bernice Morris Procedure Date: 03/14/2025 2:57 PM Date of : 1970 Admit Type: Outpatient Age: 54 Gender: Female Attending MD: Maulik Tate M.D., Room: [facility] ENDOSCOPY ROOM 02 Note Status: Finalized [...] The scope was passed under direct vision.The [id number] was introduced through the anusand advanced to [...] bowel preparation was evaluated using the BBPS (Balm Bowel Preparation Scale)with scores of: Right Colon [...] meats, exercise regularly, maintain healthy weight. See [facility] Cancer website for moreprevention tips. - Contact Information: During normal business hours (8AM-4PM) - Pleasecall the Nurse Coordinator: [phone]. titrator physician after hours, weekends andholidays: [phone] and asked for the [place]-Rectalphysician dice table person. - A polyp or polyps were removed [...] HPV HR 16 Not Detected Not Detected [facility] Comment:Testing performed by : [facility], [address] [place]., [address] HPV HR 18 Not Detected Not Detected [facility] Comment:Testing performed by : [facility], [address] [place]., [address] HPV HR Non 16/18 Not Detected Not [...] this test have been verified by the [facility] Molecular Infectious Disease laboratory. Correlate with separately reported cytology results, as applicable. Interpretive data last revised 22 Testing performed by: [facility], [address] [place]., [address] Endocervical 12/27/2023 6:22 PM CDT 12/28/2023 12:34 PM CDT Narrative [facility] - 12/29/2023 2:05 AM CDT Clinical history and diagnosis->08/02/23 unsatisfactory Testing type->Screening Last menstrual period (date if known)->pm Amado Moran MD LAB BODY FLUIDS AND STO OLS ORDERABLES Final Result [facility] [address] [facility] Department of [place] [address] [facility] from Last 3 Months or Most Recently Relevant to Health Maintenance Insurance [facility] CHOICE PLUS [facility] CHOICE PLUS Advance Directives For more information, please contact: [phone] * Full Code (Latest Code Status on File) Date Activated Date Inactivated Comments 03/14/2025 1:42 PM 03/14/2025 9:13 PM * Full Code Date Activated Date Inactivated Comments 12/31/2021 12:12 PM 12/31/2021 6:53 PM Care Teams Memory Care Director Relationship Specialty Start Date End Date Apoorva Degroot PA [address] [place] [address] PCP - General Family Practice 12/26/21 Maulik Tate MD [address] [place] [address] Consulting Physician Colon and Rectal Surgery 01/01/22 Berta Sinclair BURNING SUPERVISOR [address] [place] [address] Nurse Practitioner Nurse Practitioner 03/20/25
--- OUTSIDE RECORDS SUMMARY | 2025-04-30 08:08 | XMS_ITS | Clinical Summary ---
Author Organization [facility] Address [address] [place] [address] Care Team Providers Care Composition Siding Worker Name Role Phone Apoorva Degroot PA-C Primary Care Provider [phone] Allergies No known active allergies Medications Ascorbic [...] MCG/ 0.5 ML DOSE 08/23/2020,07/26/2020 MODERNA COVID-19 ([employer]ING [employer] SAMSON LAINEY), MRNA, LNP-S, PF, 50 MCG/ [...] to complete this topic Insurance Care Teams Composition Siding Worker Relationship Specialty Start Date End Date Apoorva Degroot PA-C [address] [place], [place] [address] [place] [address] PCP - General PHYSICIAN [employer] 10/27/22
--- OUTSIDE RECORDS SUMMARY | 2025-04-30 08:08 | XMS_ITS | Encounter Summary ---
Author Organization [facility] Healthcare Address [address] [place] [address] Care Team Providers Care Couples Therapist Name Role Phone Apoorva Degroot Primary Care Provider [phone] Maulik Tate MD Unavailable [phone] Berta Sinclair NP Unavailable [phone] Encounter Details Date Type Department Care Team (Late st Contact Info) Description 03/16/2025 Results Follow-Up [facility] Surgeon [address] [place] [address] Maulik Tate MD [address] [facility] [facility] [phone] [place] [address] Surgical pathology Social History Tobacco Use Types [...] on file Legal Sex Female 1:45 AM INVESTIGATOR CLAIMS Gender Identity Not on file Sexual Orientation Not on file documented as of this encounter Miscellaneous Notes * Result Encounter Note - Maulik Tate MD - 03/16/2025 5:48 PM INVESTIGATOR CLAIMS Spoke to her about biopsy results and questions answered, she is doing well. Please set her up for sigmoidoscopy in the GI lab in 6 months for polyp follow up, thanks. Please send scope and path reports to her PCP and Dr. Sinclair in the same [facility], thanks! STIGATOR CLAIMS documented in this encounter Plan of Treatment Not on file documented as of this encounter Visit Diagnoses Not on filedocumented in this encounter Care Teams Couples Therapist Relationship Specialty Start Date End Date Apoorva Degroot PA [address] [place] [address] PCP - General Family Practice 12/26/21 Maulik Tate MD [address] [place] [address] Consulting Physician Colon and Rectal Surgery 01/01/22 Berta Sinclair NP [address] [place] [address] Nurse Practitioner Nurse Practitioner 03/20/25 documented as of this encounter
--- OUTSIDE RECORDS SUMMARY | 2025-04-30 08:08 | XMS_ITS | Clinical Summary ---
Author Organization [facility] Address [address] [place] [address] Care Team Providers Care Superintendent Distribution Name Role Phone Unavailable Primary Care Provider Unavailabl e Social History Tobacco Use Types Packs/Day Years Used Date Smoking Tobacco: Never Assessed Comments Unknown Sex and Gender Information Value Date Recorded Sex Assigned at Not on file Legal Sex Female 3:35 PM CDT Gender Identity Not on file Sexual Orientation Not on file Plan of Treatment Upcoming Encounters Date Type Department Care Team ([facility] st Contact Info) Description 07/09/2025 10:30 AM CDT Office Visit [facility] Oncology and Hematology - [facility] [address] [address] Jesus Manuel Ga MD [address] [facility] [address] [place] [address] Health Maintenance Due Date Last [...]
== END 2025-04-30 08:01 | disposition home or self-care (01) ==
LOC: ANHSURGERY 08:03
PROVIDERS: PCP Nurse Practitioner Family; Visit Provider Surgery
DX: K43.2 Incisional hernia without obstruction or gangrene (principal); Z01.818 Encounter for other preprocedural examination
CPT/HCPCS: 36415; 86850; 86900; 86901